=== PATIENT | male | born 1945 | race Caucasian/White ===

== ENCOUNTER 2017-10-20 17:55 | Inpatient (IN) | payer MEDICARE, OTHER ==
--- NOTE | ~2017-10-20 | HEMODYNAMI ---
PATIENT:GHANSHYAM RASMUSSEN MEDICAL RECORD: [id number] : 49 [facility] ADMISSION DATE: 10/20/17 Generatedon:10/21/201715:56 Patient name: GHANSHYAM RASMUSSEN Patient #: [id number] SSN: : 1945 Date of study: 10/21/2017 Page: Of Hemodynamic Procedure Report Patient Data Patient Demographics Procedure consent was obtained First Name: GHANSHYAM Gender: Male Last Name: GRADY : 1945 Middle Initial: D Age: 72 year(s) Patient #: [id number] Race: Unknown Additional ID: [id number] Contact details Address: [address] [place] [address] State: [place] City: [place] Zip code: [address] Past Medical History Allergies: No known allergies Admission Admission Data Admission Date: 10/20/2017 Admission Time: 17:55 Admit Source: Other Room #: D.2120 Procedure Procedure Types Cath Procedure Diagnostic Procedure LHC LHC w/Coronaries w/Grafts Sedation Charges Moderate Sedation up to 30 minutes PCI Procedure Coronary Stent Coronary Stent Initial Procedure Description Procedure Date Procedure Date: 10/21/2017 Procedure Start Time: 15:10 Procedure End Time: 15:56 Procedure Staff Name Function Jose Montes MD Performing Physician Carrie Weaver RT Monitor Devon Salcedo RT Scrub Lucy Amaya RN Nurse Procedure Data Cath Procedure Fluoroscopy Diagnostic fluoroscopy Total fluoroscopy Time: 7.8 time: 7.8 min min Diagnostic fluoroscopy Total fluoroscopy dose: dose: 1396 mGy 1396 mGy Contrast Material Contrast Material Type Amount (ml) Isovue 300 146 Entry Location Entry Primary Successful Side Size Upsize Upsize Entry Closure Mejia ccessful Closure Location (Fr) 1 (Fr) 2 (Fr) Remarks Device Remarks Radial Right 6 Fr Mechanical artery Short Compression Femoral Right 5 Fr 6 Fr Exoseal artery Short Estimated blood loss: 10 ml Diagnostic catheters Device Type Used For End Catheter Placement DIAGNOSTIC Lars 110cm LV Angiography 5Fr catheter ([id number]) MULTIPACK JL 4.0 5Fr Left Coronary catheter Angiography DIAGNOSTIC JL 5 5Fr Left Coronary catheter ([id number]) Angiography MULTIPACK 3DRC 5Fr Right Coronary catheter Angiography MULTIPACK Pigtail 5 Fr LV Angiography catheter DIAGNOSTIC JL 5 5Fr Left Coronary catheter ([id number]) Angiography Procedure Complications No complications Procedure Medications Medication Administration Route Dosage Oxygen NC 2 l/min Lidocaine 2% added to field 20 Heparin Flush Bag added to field 2 bags (1000units/500ml NS) 0.9% NaCl I.V. 100 ml/hr Radial Cocktail added to field 1 syringe (Verapomil 2mg/Nitro 400mcg/Heparin 1500units) Versed I.V. 2 mg Fentanyl I.V. 100 mcg Versed I.V. 1 mg Fentanyl I.V. 50 mcg Versed I.V. 2 mg Fentanyl I.V. 50 mcg Versed I.V. 1 mg Fentanyl I.V. 100 mcg Heparin Bolus I.V. 9500 units Versed I.V. 1 mg Versed I.V. 1 mg Plavix P.O. 600 mg Hemodynamics Rest Heart Rate: 101 (bpm) Pressure Samples Time Site Value (mmHg) Purpose Heart Use Rate(bpm) 15:27 LV 146/-5,14 EDP 78 15:27 AO 146/80(105) Pullback 104 15:27 LV 153/-5,17 Pullback 104 Gradients Valve Time Site 1 Site 2 Mean SEP/DFP Peak To Heart Use (mmHg) (sec/min) Peak Rate (mmHg) (bpm) Aortic 15:27 LV AO 21 11 7 104 153/-5,17 146/80(105) Calculations Valve P-P Mean Valve Index Valve Source Name Gradient Area Flow (cm2) Aortic 7 21 7 21 Snapshots Pre Cath Intra NCS Post Cath Vital Signs Time Heart Resp SPO2 etCO2 NIBP (mmHg) Rhythm Pain Sedation Rate (ipm) (%) (mmHg) Status Level (bpm) 14:59:50 101 19 98 35.3 159/87(114) NSR 0 (11) 10(A) , No pain 15:04:41 100 10 97 36.7 155/95(121) NSR 0 (11) 10(A) , No pain 15:09:34 100 14 94 28.5 154/96(125) NSR 0 (11) 10(A) , No pain 15:15:06 99 11 97 36 146/80(99) NSR 0 (11) 9(A) , No pain 15:19:51 102 13 94 9.7 136/90(126) NSR 0 (11) 9(A) , No pain 15:24:37 101 14 93 0 127/94(114) NSR 0 (11) 9(A) , No pain 15:29:22 103 13 93 0 140/89(107) NSR 0 (11) 9(A) , No pain 15:34:13 98 15 95 0 137/75(103) NSR 0 (11) 9(A) , No pain 15:39:00 100 13 94 0 123/87(115) NSR 0 (11) 9(A) , No pain 15:43:42 103 14 96 0 131/93(106) NSR 0 (11) 9(A) , No pain 15:48:29 100 14 95 24.7 137/92(107) NSR 0 (11) 10(A) , No pain 15:53:16 100 10 95 10.4 129/96(121) NSR 0 (11) 10(A) , No pain Medications Time Medication Route Dose Verified Delivered Reason Notes Effectiveness by by 15:04:02 Oxygen NC 2 l/min Jose Buffie used for Isma Amaya RN procedure 15:04:11 Lidocaine 2% added 20ml Jose Jose for local to vial Isma Montes MD anesthetic field 15:04:22 Heparin Flush added 2 bags Jose Jose used for Bag to Isma Montes MD procedure (1000units/500ml field NS) 15:04:31 0.9% NaCl I.V. 100 Jose Buffie Per ml/hr Isma Amaya RN physician 15:04:44 Radial Cocktail added 1 Jose Jose for (Verapomil to syringe Isma Montes MD vasodilation 2mg/Nitro field 400mcg/Heparin 1500units) 15:05:38 Versed I.V. 2 mg Jose Buffie for sedation Isma Amaya RN 15:05:44 Fentanyl I.V. 100 mcg Jose Buffie for sedation Isma Amaya RN 15:11:49 Versed I.V. 1 mg Jose Buffie for sedation Isma Amaya RN 15:11:53 Fentanyl I.V. 50 mcg Jose Buffie for sedation Isma Amaya RN 15:16:51 Versed I.V. 2 mg Jose Buffie for sedation Isma Amaya RN 15:16:54 Fentanyl I.V. 50 mcg Jose Buffie for sedation Isma Amaya RN 15:31:51 Versed I.V. 1 mg Jose Buffie for sedation Isma Amaya RN 15:31:54 Fentanyl I.V. 100 mcg Jose Buffie for sedation Isma Amaya RN 15:35:09 Heparin Bolus I.V. 9500 Jose Buffie Per verifie d units Isma Amaya RN physician with dr montes 15:45:41 Versed I.V. 1 mg Jose Buffie for sedation Isma Amaya RN 15:48:14 Versed I.V. 1 mg Jose Buffie for sedation Isma Amaya RN 15:54:29 Plavix P.O. 600 mg Jose Buffie for Isma Amaya RN antiplatelet therapy Procedure Log Time Note 14:32:35 Informed consent obtained and on chart 14:32:40 Admit Source: Other 14:33:05 Diagnostic Cath status Elective 14:33:08 Time tracking: Regular hours (M-F 7:00 - 5:00) 14:33:11 Plan of Care:Hemodynamics will remain stable., Cardiac rhythm will remain stable., Comfort level will be maintained., Respiratory function will remain adequate., Patient/ family verbilizes understanding of procedure., Procedure tolerated without complication., Recovers from procedure without complications.. 14:34:47 H&P Date Dictated: 10/20/2017 Within 30 days and on chart.. 14:34:51 Lucy Amaya RN sent for patient. Start room use. 14:46:43 Patient received from PCU to CCL 1 Alert and oriented. Tansferred to table in Supine position. 14:46:44 Warm blankets applied, and pavel hugger turned on for patient comfort. 14:46:44 Correct patient and procedure confirmed by team. 14:46:45 ECG and BP/O2 sat monitors applied to patient. 14:46:46 Full Disclosure recording started 14:58:40 Vital chart was started 14:58:47 Rhythm: sinus tachycardia 14:59:11 SINUS TACH W/LBBB 14:59:18 Pre-procedure instructions explained to patient. 14:59:18 Pre-op teaching completed and patient verbalized understanding. 14:59:21 Family in patients room. 14:59:22 Patient NPO since Midnight. 15:01:42 Patient allergic to No known allergies 15:01:46 Is patient on blood thinner?No 15:01:49 Patient diabetic? No. 15:01:52 Previous problem with sedation/anesthesia? No ? 15:01:56 Snore? No 15:01:57 Sleep apnea? No 15:01:58 Deviated septum? No 15:01:59 Opens mouth fully? Yes 15:03:44 Sticks out tongue? Yes 15:03:51 Airway obstruction? No ? 15:03:56 Dentures? Yes IN 15:04:00 Pre procedure: right dorsailis pedis pulse 2+ Normal; easily identifiable; not easily obliterated 15:04:01 Modified Aniceto's test Ulnar < 7 seconds 15:04:02 Oxygen 2 l/min NC was administered by Lucy Amaya RN; used for procedure; 15:04:03 Patient pain scale 0/10 ?. 15:04:11 Lidocaine 2% 20ml vial added to field was administered by Jose Montes MD; for local anesthetic; 15:04:14 IV patent on arrival in left forearm with 0.9% NaCl at [facility]. 15:04:17 Lab results completed and on chart. 15:04:22 Heparin Flush Bag (1000units/500ml NS) 2 bags added to field was administered by Jose Montes MD; used for procedure; 15:04:27 Right Radial & Right Groin area was prepped with chlora-prep and draped in sterile fashion 15:04:28 Alarms reviewed by R. N. 15:04:28 Sharps counted by scrub and verified by R.N. 15:04:31 0.9% NaCl 100 ml/hr I.V. was administered by Lucy Amaya RN; Per physician; 15:04:39 Use device set Radial Dx or PCI 15:04:40 ACIST Syringe (18594) opened to sterile field. 15:04:41 Medline Cath Pack ([id number]) opened to sterile field. 15:04:41 Bag Decanter (2002S) opened to sterile field. 15:04:42 DIAGNOSTIC WIRE .035 260cm J wire (141545) opened to sterile field. 15:04:42 ACIST Hand Control (97938) opened to sterile field. 15:04:43 ACIST Manifold (71596) opened to sterile field. 15:04:44 Radial Cocktail (Verapomil 2mg/Nitro 400mcg/Heparin 1500units) 1 syringe added to field was administered by Jose Montes MD; for vasodilation; 15:04:44 Tegaderm 4 x 4 (1626W) opened to sterile field. 15:04:45 MBrace Wrist Support ([id number]) opened to sterile field. 15:04:46 SHEATH 6Fr Prelude Radial ([id number]) opened to sterile field. 15:04:54 Final Timeout: patient, procedure, and site verified with staff and physician. All members of the team are in agreement. 15:04:59 Right Radial site verified by team. 15:05:02 Physical assessment completed. ASA score P 2 - A patient with mild systemic disease as per Jose Montes MD. 15:05:07 Sedation plan: IV Moderate Sedation Medication:Versed, Fentanyl 15:05:38 Versed 2 mg I.V. was administered by Lucy Amaya RN; for sedation; 15:05:44 Fentanyl 100 mcg I.V. was administered by Lucy Amaya RN; for sedation; 15:05:59 Baseline sample Acquired. 15:09:38 Procedure started. 15:09:46 Zero performed for pressure channel P1 15:10:12 Local anesthetic to right radial artery with Lidocaine 2% by Jose Montes MD.INITIAL ACCESS ONLY 15:10:51 A 6 Fr Short sheath was inserted into the Right Radial artery 15:11:49 Versed 1 mg I.V. was administered by Lucy Amaya RN; for sedation; 15:11:51 A DIAGNOSTIC Lars 110cm 5Fr catheter ([id number]) was advanced over the wire and used for LV Angiography. CATHETER REMOVED UNABLE TO ADVANCE TO AORTA 15:11:53 Fentanyl 50 mcg I.V. was administered by Lucy Amaya RN; for sedation; 15:15:26 Local anesthetic to right femoral artery with Lidocaine 2% by Jose Montes MD.ADDITIONAL ACCESS 15:15:32 Use device set Multipack Set 15:15:36 DIAGNOSTIC Multipack 5Fr catheter set ([id number]) opened to sterile field. 15:15:47 SHEATH Prelude 5Fr 0.035 (AIM-9W-65-035) opened to sterile field. 15:16:51 Versed 2 mg I.V. was administered by Lucy Amaya RN; for sedation; 15:16:54 Fentanyl 50 mcg I.V. was administered by Lucy Amaya RN; for sedation; 15:17:08 A 5 Fr sheath was inserted into the Right Femoral artery 15:17:17 A MULTIPACK JL 4.0 5Fr catheter was advanced over the wire and used for Left Coronary Angiography. REMOVED, UNABLE TO CANNULATE 15:18:34 A DIAGNOSTIC JL 5 5Fr catheter ([id number]) was advanced over the wire and used for Left Coronary Angiography. 15:22:28 Catheter removed. 15:23:43 A MULTIPACK 3DRC 5Fr catheter was advanced over the wire and used for Right Coronary Angiography. 15:26:54 Catheter removed. 15:27:09 A MULTIPACK Pigtail 5 Fr catheter was advanced over the wire and used for LV Angiography. 15:27:24 LV gram done using SANDS 15:27:24 LV hemodynamics recorded. 15:27:27 Injector settings: Ml/sec: 10, Volume: 20, 15:27:31 EF : 35 % 15:27:53 Catheter removed. 15:28:39 Use device set MONTES PCI 15:28:41 SHEATH Prelude 6Fr 0.035 (BYP-7I-32-035) opened to sterile field. 15:28:44 INFLATOR Merit BasixCompak (FT4391) opened to sterile field. 15:28:44 TUBING High Pressure Extension Tubing (Montes) (WJ2103F) opened to sterile field. 15:28:46 BMW 300cm [place] 2 J wire ([id number]) opened to sterile field. 15:30:40 GUIDE 6FR EBU 3.75 catheter ([id number]) opened to sterile field. 15:31:51 Versed 1 mg I.V. was administered by Lucy Amaya RN; for sedation; 15:31:54 Fentanyl 100 mcg I.V. was administered by Lucy Amaya RN; for sedation; 15:32:08 Sheath upsized to a 6 Fr Short. 15:32:14 6 Fr EBU 3.75 guide catheter was inserted over the wire 15:35:09 Heparin Bolus 9500 units I.V. was administered by Lucy Amaya RN; Per physician; verified with dr montes 15:36:16 BMW wire advanced. 15:41:31 Place stent Inflation Number: 1 A INTEGRITY OTW 3.0 X 26 stent ([id number]) was prepped and advanced across the Prox LAD. The stent was deployed at 100 MELINDA for 0:18 (min:sec). 15:42:56 Stent catheter was removed intact over wire. 15:42:58 Wire removed. 15:42:58 Guide catheter removed. 15:45:41 Versed 1 mg I.V. was administered by Lucy Amaya RN; for sedation; 15:47:18 A DIAGNOSTIC JL 5 5Fr catheter ([id number]) was advanced over the wire and used for Left Coronary Angiography. 15:48:14 Versed 1 mg I.V. was administered by Lucy Amaya RN; for sedation; 15:49:15 Catheter removed. 15:49:27 Sheath removed intact; hemostasis achieved with Exoseal to the Right Femoral artery. 15:49:30 Procedure ended.(Physican Out) 15:50:08 Fluoroscopy time 07.80 minutes. 15:50:12 Flurop Dose total: 1396 15:50:12 Fluoroscopy dose: 1396 mGy 15:50:24 Contrast amount:Isovue 300 146ml. 15:50:25 Sharps counted by scrub and verified by R.N. 15:50:38 Sheath removed intact; hemostasis achieved with Mechanical Compression to the Right Radial artery. 15:50:42 TR band inflated with 12cc of air. 15:50:47 Post-op/insertion site Right Femoral artery dressed using a 4 x 4 and Tegaderm. 15:50:51 Post right femoral artery:stable, clean and dry 15:50:57 Post right radial artery:stable, clean and dry 15:50:58 Post Procedure Pulses reassessed and unchanged 15:51:00 Post-procedure physical assessment completed. ASA score P 2 - A patient with mild systemic disease as per Jose Montes MD. 15:51:08 Post procedure rhythm: unchanged. 15:51:12 Estimated blood loss: 10 ml 15:51:19 Post procedure instruction explained to patient.Patient verbalizes understanding. 15:51:20 Patient needs reinforcement of post procedure teaching. 15:52:23 Procedure type changed to Cath procedure, Diagnostic procedure, LHC, LHC w/Coronaries w/Grafts, Sedation Charges, Moderate Sedation up to 30 minutes, PCI procedure, Coronary Stent, Coronary Stent Initial 15:52:28 Procedure Complication : No complications 15:52:30 See physician's report for complete and final results. 15:52:46 EXOSEAL 6Fr (EX600) opened to sterile field. 15:53:57 TR BAND Standard ([id number]) opened to sterile field. 15:54:16 Procedure and supply charges have been captured, reviewed, submitted and are correct. 15:54:29 Plavix 600 mg P.O. was administered by Lucy Amaya RN; for antiplatelet therapy; 15:55:50 Vital chart was stopped 15:56:00 Report given to PCU. 15:56:03 Patient transfered to PCU with Bed. 15:56:12 Procedure ended. 15:56:12 Full Disclosure recording stopped 15:56:16 End room use (Document Last) Intervention Summary Intervention Notes Time ActionType Lesion and Equipment Action# Pressure Duration Attributes Used 15:41:31 Place stent Prox LAD INTEGRITY 1 100 00:18 OTW 3.0 X 26 stent ([id number]) Device Usage Item Name Manufacture Quantity Catalog Number Hospital Part Current Minimal Lot# / Charge Number Stock Stock Serial# Code ACIST Syringe Acist 1 94360 391176 504642 559912 20 (79781) Medical [employer] Inc Medline Cath Cardinal 1 [id number] 222017 52577 157162 5 Pack Health ([id number]) Bag Decanter Microtek 1 2001S 126149 29276 589802 5 () Medical Inc. DIAGNOSTIC WIRE St Walt 1 230604 529135 989805 490771 30 .035 260cm J wire (983220) ACIST Hand Acist 1 01245 751436 493309 012130 5 Control (79207) [employer] Inc ACIST Manifold Acist 1 37827 047053 206641 662330 5 (38746) Medical Systems Inc Tegaderm 4 x 4 3M 1 1626W 741251 510564 339229 5 (1626W) MBrace Wrist Advanced 1 140-0250-00 984651 96602 019302 5 Support Vascular ([id number]) Dynamics SHEATH 6Fr Merit 1 [id number] 576734 580715 874759 5 Prelude Radial Medical ([id number]) DIAGNOSTIC Terumo 1 40-1088 893887 184048 153568 5 Lars 110cm 5Fr catheter (831470) DIAGNOSTIC Cardinal 1 [id number] 133486 25973 163713 30 Multipack 5Fr Health catheter set (VF7569) SHEATH Prelude Merit 1 GAX-6Q-24-035 247997 771968 317612 5 5Fr 0.035 Medical (DGF-0U-79-035) MULTIPACK JL Cardinal 1 708852 5 4.0 5Fr Health catheter DIAGNOSTIC JL 5 Cardinal 1 [id number] 800166 006145 707908 5 5Fr catheter Health (967752I) MULTIPACK 3DRC Cardinal 1 504869 5 5Fr catheter Health MULTIPACK Cardinal 1 404188 5 Pigtail 5 Fr Health catheter SHEATH Prelude Merit 1 IAJ-0T-22-35 933286 6344113 092011 5 6Fr 0.035 Medical (CTY-1N-37-035) INFLATOR Merit Merit 1 YM2099 363266 540695 883620 15 BasixHoodinn Medical (HZ0154) TUBING High Merit 1 [id number] 277300 93396 103034 10 Pressure Medical Extension Tubing (Montes) (CL5128X) BMW 300cm [place] 1 [id number] 037117 157977 080963 5 [place] 2 J Vascular wire (1955438Y) GUIDE 6FR EBU Medtronic 1 [id number] 744516 12256 859008 1 3.75 catheter ([id number]) INTEGRITY OTW Medtronic 1 [id number] 127797 791234 3 [id number] 3.0 X 26 stent ([id number]) EXOSEAL 6Fr Cardinal 1 EX600 778222 801550 646431 10 (EX600) Health TR BAND Terumo 1 [id number] 729071 939805 542662 40 Standard ([id number]) Signature Audit [place] Stage Time Signature Unsigned Intra-Procedure 10/21/2017 Carrie 3:56:28 PM Counts RT(R) Signatures Monitor : Carrie Signature : Counts RT Date : Time : [place] [address] [place] [address]
[2017-10-20] MEDS ORDERED: FEXOFENADINE H180 MG PO (18:51)
[2017-10-20] MEDS ORDERED: AMBIEN10 MG PO (18:52)
[2017-10-20] MEDS ORDERED: HYZAAR 100-12.51 TAB PO (18:54)
[2017-10-20 20:00] VITALS: BP 134/76
[2017-10-20 20:43] LABS: CKMB 1.1 U/L (0.0-3.6); CREATINE KINASE 258 UL (21-232)
[2017-10-20 20:45] LABS: TROPONIN-I 0.441 ng/mL (0.000-0.060)
[2017-10-21 01:01] LABS: CKMB 0.9 U/L (0.0-3.6); CREATINE KINASE 229 UL (21-232)
[2017-10-21 01:03] LABS: TROPONIN-I 0.408 ng/mL (0.000-0.060)
[2017-10-21 04:00] VITALS: BP 149/89
[2017-10-21 08:03] VITALS: BP 135/66
[2017-10-21 08:42] LABS: CALC OSMOLALITY 285 mosm/kg (275-300); CALCIUM 8.3 mg/dL (8.5-10.1); CARBON DIOXIDE 32.1 mmol/L (21.0-32.0); CHLORIDE - SERUM 106 mmol/L (98-107); CREATININE - SERUM 0.9 mg/dL (0.6-1.3); GLUCOSE 80 mg/dL (74-106); SODIUM 143 mmol/L (136-145); UREA NITROGEN 19 mg/dL (7-18); eGFR NON AFRICAN AMERICAN 89 mL/min (90-120)
[2017-10-21 08:48] LABS: BASOPHILS 0.5 % (0-2); EOSINOPHILS 2.3 % (0-7); HEMATOCRIT 42.9 % (42.0-54.0); HEMOGLOBIN 14.1 g/dL (13.5-17.5); IMMATURE GRANULOCYTES 0.4 % (0-5); LYMPHOCYTES 22.9 % (15-50); MCH 29.4 pg (26.0-34.0); MCHC 32.9 g/dL (31.0-37.0); MCV 89.4 fL (80.0-100.0); MEAN PLATELET VOLUME 9.9 fL (7.4-10.4); MONOCYTES 10.7 % (2-11); NEUTROPHILS 63.2 % (40-80); RDW 13.5 % (11.5-14.5); WBC 10.7 10x3/uL (4.8-10.8)
[2017-10-21 08:53] LABS: PLATELET COUNT 313 10x3/uL (130-400)
[2017-10-21 09:03] LABS: CREATINE KINASE 192 UL (21-232)
[2017-10-21 09:19] LABS: TROPONIN-I 0.431 ng/mL (0.000-0.060)
[2017-10-21 11:20] VITALS: BP 124/73
[2017-10-21] MEDS ORDERED: PLAVIX75 MG PO ×2 (16:42→17:08)
[2017-10-21] MEDS ORDERED: COREG 3.1253.125 MG PO (17:08)
[2017-10-21] MEDS ORDERED: BAYER CHEWABLE81 MG PO (17:08)
[2017-10-21] MEDS ORDERED: PRAVACHOL20 MG PO (17:08)
== END 2017-10-21 21:00 | disposition home or self-care (01) | DRG 249 ==
LOC: OBSVTIME → D.M2 17:55 → OBSVTIME 17:55 → UNDOADMOB 17:55 → D.M2 17:55 → OBSVTIME 17:59 → D.M2 10-21 14:25
PROVIDERS: Family Medicine; Internal Medicine Cardiovascular Disease
PROC: B2111ZZ Fluoroscopy of Multiple Coronary Arteries using Low Osmolar Contrast (ICD-10-PCS; 2017-10-21)
PROC: B2151ZZ Fluoroscopy of Left Heart using Low Osmolar Contrast (ICD-10-PCS; 2017-10-21)
PROC: 02703DZ Dilation of Coronary Artery, One Artery with Intraluminal Device, Percutaneous Approach (ICD-10-PCS; principal; 2017-10-21 14:00)
PROC: 4A023N7 Measurement of Cardiac Sampling and Pressure, Left Heart, Percutaneous Approach (ICD-10-PCS; 2017-10-21 14:00)
DX: I21.4 Non-ST elevation (NSTEMI) myocardial infarction (principal); I44.7 Left bundle-branch block, unspecified; I25.10 Atherosclerotic heart disease of native coronary artery without angina pectoris; I10 Essential (primary) hypertension

== ENCOUNTER → 2018-07-01 10:12 | Outpatient (CLI) | payer MEDICARE, OTHER ==
[~2018-07-01 10:12] MED LIST: AMBIEN10 MG PO; BAYER CHEWABLE81 MG PO; COREG 3.1253.125 MG PO; FEXOFENADINE H180 MG PO; HYZAAR 100-12.51 TAB PO; PLAVIX75 MG PO; PRAVACHOL20 MG PO
== END | disposition home or self-care (01) ==
LOC: D.US 10:12 → D.HCCARDIO 10:30 → D.US 10:30
PROVIDERS: ATTEND Internal Medicine Cardiovascular Disease
DX: R42 Dizziness and giddiness (principal)